=== PATIENT | female | born 2000 | race Caucasian/White ===

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

== ENCOUNTER 2021-01-11 15:00 | Inpatient (IN) | payer OTHER ==
[2021-01-11 16:22] VITALS: BMI 35.4
[2021-01-11] MEDS ORDERED: AMPICILLIN SODIUM 2 GM VIAL ONE (16:28)
[2021-01-11] MEDS ORDERED: AMPICILLIN - 2 GM in SODIUM CHLORIDE 100 ML IVPB ONE (16:30)
[2021-01-11 16:43] LABS: BASO % 0.3 % (0-2.0); EOS % 0.5 % (0-4.5); HEMATOCRIT 31.5 % (32.4-45.2); HEMOGLOBIN 10.2 GM/dL (10.7-15.3); LYMPH % 17.6 % (8-40); MCH 26.2 pg (25.7-33.7); MCHC 32.3 g/dl (32.0-36.0); MEAN PLT VOLUME 9.8 fl (7.5-11.1); NEUT % 75.6 % (42.8-82.8); PLATELET COUNT 277 K/MM3 (134-434); RBC 3.89 M/mm3 (3.60-5.2); RDW 26.5 % (11.6-15.6)
[2021-01-11 16:52] LABS: INR 0.94 (0.83-1.09); PROTHROMBIN TIME (PATIENT) 11.4 SEC (9.7-13.0)
[2021-01-11 16:55] LABS: ACTIVATED PTT 28.2 SECONDS (25.2-36.5)
[2021-01-11] MEDS ORDERED: ELECTROLYTE-148 SOLN 1,000 ML IV SCH ×2 (17:00→17:15)
[2021-01-11 17:01] LABS: BLOOD UREA NITROGEN 6.2 mg/dL (7-18); CALCIUM 9.2 mg/dL (8.5-10.1)
[2021-01-11 17:05] LABS: CREATININE 0.5 mg/dL (0.55-1.3)
[2021-01-11] MEDS ORDERED: BUTORPHANOL TARTRATE 1 MG/ML VIAL IVPB ONE (17:08)
[2021-01-11] MEDS ORDERED: PROMETHAZINE HCL 25 MG/1 ML VIAL IVPUSH ONE (17:08)
[2021-01-11] MEDS ORDERED: DEXTROSE 5%-LACTATED RINGERS 1,000 ML IV SCH (17:15)
[2021-01-11 17:59] LABS: HIV INTERPRETATION NEGATIVE (NEGATIVE)
[2021-01-11] MEDS ORDERED: BUTORPHANOL TARTRATE 2 MG/ML VIAL ONE (18:39)
[2021-01-11] MEDS ORDERED: PROMETHAZINE HCL 25 MG/1 ML VIAL ONE (18:39)
[2021-01-11] MEDS ORDERED: AMPICILLIN SODIUM 1 GM VIAL ONE (20:00)
[2021-01-11] MEDS: AMPICILLIN - 1 GM in SODIUM CHLORIDE 100 ML IVPB SCH (20:10)
[2021-01-11] MEDS ORDERED: OXYTOCIN 30 UNITS in 0.9% NS 30 UNIT/500 ML INFUS.BAG IVPB ONE (20:20)
[2021-01-11 20:29] LABS: ANISOCYTOSIS 2+; MACROCYTOSIS 0; OVALOCYTE 1+; PLATELET ESTIMATE NORMAL; TEAR DROP CELLS 1+
[2021-01-11] MEDS ORDERED: OXYTOCIN 30 UNITS in 0.9% NS 30 UNIT/500 ML INFUS.BAG IVPB SCH (20:30)
[2021-01-11] MEDS ORDERED: FENTANYL/BUPIVACAINE/NS/PF - PCEA - 50 ML DISP.SYRIN EP ONE (22:23)
[2021-01-11] MEDS ORDERED: OXYTOCIN 20 UNITS in 0.9% NS 20 UNIT/1,000 ML INFUS.BAG IV ONE (22:34)
[2021-01-11] MEDS ORDERED: LIDOCAINE HCL 1% PRESERVATIVE FREE - 30ML VIAL ONE (22:36)
[2021-01-11] MEDS ORDERED: D5W-LR W/ 20 UNITS OXYTOCIN 20 UNIT/1,000 ML INFUS.BAG IV SCH (23:45)
[2021-01-11] MEDS ORDERED: ACETAMINOPHEN 325 MG TABLET (FP) PO PRN (23:49)
[2021-01-11] MEDS ORDERED: WITCH HAZEL 50% (TUCKS) 40 PAD/JAR PAD TP PRN (23:49)
[2021-01-11] MEDS ORDERED: BISACODYL 10 MG SUPP.RECT RC PRN (23:49)
[2021-01-11] MEDS ORDERED: IBUPROFEN 600 MG TABLET (FP) PO PRN (23:49)
[2021-01-11] MEDS ORDERED: METHYLERGONOVINE MALEATE 0.2 MG/1 ML AMP IM PRN (23:49)
[2021-01-11] MEDS ORDERED: BENZOCAINE 20% 57 GM BOTTLE TP PRN (23:49)
[2021-01-11] MEDS ORDERED: BENZOCAINE 28 GM HEMORRHOIDAL OINTMENT TP PRN (23:49)
[2021-01-11 23:52] LABS: CORD BASE EXCESS -5.3 mmol/L (0-2); CORD HCO3 20.8 mmHg (20-29); CORD PCO2 42.2 mmHg (30-78); CORD pH 7.31 (7.14-7.44)
[2021-01-11 23:53] LABS: CORD HCO3 23.4 mmHg (20-29); CORD PCO2 66.6 mmHg (30-78); CORD pH 7.163 (7.14-7.44)
[2021-01-12] MEDS: AMPICILLIN - 1 GM in SODIUM CHLORIDE 100 ML IVPB SCH (02:04)
[2021-01-12 08:25] LABS: BASO % 1.1 % (0-2.0); EOS % 0.4 % (0-4.5); HEMOGLOBIN 8.7 GM/dL (10.7-15.3); LYMPH % 18.2 % (8-40); MCH 26.4 pg (25.7-33.7); MCHC 32.3 g/dl (32.0-36.0); MEAN CELL VOLUME 81.8 fl (80-96); MEAN PLT VOLUME 9.8 fl (7.5-11.1); MONO % 5.3 % (3.8-10.2); PLATELET COUNT 225 K/MM3 (134-434); RDW 27.2 % (11.6-15.6); WHITE BLOOD COUNT 13.1 K/mm3 (4.0-10.0)
[2021-01-12] MEDS: PRENATAL VITAMINS W/ FOLIC ACID TABLET (FP) PO SCH (09:22)
[2021-01-12] MEDS: FERROUS SO4 325 MG TABLET (FP) PO SCH ×2 (09:22→21:30)
[2021-01-12] MEDS ORDERED: SENNOSIDES/DOCUSATE COMBO (SENNA PLUS) TABLET (UD) PO PRN (22:00)
[2021-01-12 23:55] VITALS: BP 129/78; PULSE 98; TEMP 99.2
[2021-01-13] MEDS: FERROUS SO4 325 MG TABLET (FP) PO SCH (09:55)
[2021-01-13] MEDS: PRENATAL VITAMINS W/ FOLIC ACID TABLET (FP) PO SCH (09:55)
[2021-01-17 08:31] LABS: POC NITRAZINE POS
== END 2021-01-13 14:00 | disposition home or self-care (01) | DRG 560 ==
LOC: JDEL 15:00 → JLDR 15:16 → J3W 01-12 01:36
PROVIDERS: ADMIT Obstetrics & Gynecology; ATTEND Obstetrics & Gynecology
PROC: 10E0XZZ Delivery of Products of Conception, External Approach (ICD-10-PCS; principal; 2021-01-11)
PROC: 0W8NXZZ Division of Female Perineum, External Approach (ICD-10-PCS; 2021-01-11)
DX: O42.02 Full-term premature rupture of membranes, onset of labor within 24 hours of rupture (principal); O70.0 First degree perineal laceration during delivery; O69.81X0 Labor and delivery complicated by cord around neck, without compression, not applicable or unspecified; O99.824 Streptococcus B carrier state complicating childbirth; O90.81 Anemia of the puerperium; D64.9 Anemia, unspecified; Z87.440 Personal history of urinary (tract) infections; Z3A.40 40 weeks gestation of pregnancy; Z37.0 Single live birth; Z86.19 Personal history of other infectious and parasitic diseases
CPT/HCPCS: 36415; 36600; 59409; 80048; 82803; 83986-QW; 85025; 85610; 85730; 86780; 86850; 86900; 86901; 87389; C9803; U0003; U0005